=== PATIENT | female | born 1965 | race Caucasian/White ===

== ENCOUNTER 2017-05-19 18:54 | Emergency (ER) | payer SELFPAY ==
[~2017-05-19] VITALS: Ht 175.3 cm; Wt 63.5 kg
[2017-05-19 19:01] VITALS: BP 134/83
--- NOTE | 2017-05-19 19:06 | NUR ---
PT TAKEN TO BED 12
--- NOTE | 2017-05-19 19:15 | NUR ---
CAME IN WITH C/O LOWER BACK PAIN , WITH PAINFUL URINATION -BURNING STARTED LAST NIGHT.
--- NOTE | 2017-05-19 19:35 | NUR ---
Patient being evaluated by physician at bedside.
[2017-05-19] MEDS ORDERED: PHENAZOPYRIDINE 100 MG TAB PO ONE (19:45)
[2017-05-19] MEDS ORDERED: SULFAMETH/TRIMETH DS 800/160MG 1 TAB PO ONE (19:45)
--- NOTE | 2017-05-19 19:55 | NUR ---
MEDICATED PER ERMDS ORDER, TOLERATED WELL.
[2017-05-19 20:10] VITALS: BP 134/83
--- NOTE | 2017-05-19 20:10 | NUR ---
Patient discharged with v/s stable. Written and verbal after care instructions given and explained. Patient alert, oriented and verbalized understanding of instructions. Ambulatory with steady gait. All questions addressed prior to discharge. ID band removed. Patient advised to follow up with PMD. Rx of PYRIDIUM 200MG, MACROBID 100MG given. Patient educated on indication of medication including possible reaction and side effects. Opportunity to ask questions provided and answered.
== END 2017-05-19 20:10 | disposition home or self-care (01) ==
LOC: MED 18:54
DX: N39.0 Urinary tract infection, site not specified (principal); M54.40 Lumbago with sciatica, unspecified side
CPT/HCPCS: 81002; 81025; 99283

== ENCOUNTER 2017-10-03 18:29 | Inpatient (IN) | payer OTHER ==
[~2017-10-03] VITALS: Ht 172.7 cm; Wt 61.2 kg
--- NOTE | 2017-10-03 18:32 | NUR ---
PT BIBA TO BED 1
[2017-10-03 18:37] VITALS: BP 110/62
--- NOTE | 2017-10-03 18:55 | NUR ---
PT LYING ON BED. MONITOR ON. CO SYNCOPE EPISODE TODAY WITH LIGHTHEADEDNESS. NO INJURY. PT WAS A/OX3. WALKED INTO BATH FOR URINE SAMPLE IN STEADY GAIT. SPEAKS FULL SENTENCES, FOLLOWS COMMAND, DENIES SOB. LOUNG SOUND CLEAR. BREATHING EVEN. ABDOMEN ROUND AND SOFT. NO N/V/D. SKIN INTACT, WARM AND DRY.
[2017-10-03 19:23] LABS: APPEARANCE,URINE SL CLOUDY (CLEAR); BILIRUBIN,URINE NEGATIVE (NEGATIVE); BLOOD, URINE 3+ (NEGATIVE); COLOR,URINE YELLOW (YELLOW); LEUKOCYTE ESTERASE ,URINE 2+ (NEGATIVE); NITRITE, URINE NEGATIVE (NEGATIVE); UGLUCOSE NEGATIVE (NEGATIVE)
[2017-10-03 19:26] LABS: RBC,URINE 50-80 /HPF (0-5); WBC,URINE 20-60 /HPF (0-5)
[2017-10-03 19:28] LABS: PROTHROMBIN TIME 11.3 secs (10.8-13.4)
[2017-10-03 19:30] LABS: ALBUMIN 2.4 g/dL (3.4-5.0); ANION GAP 13.9 (8-16); BILIRUBIN,DIRECT 0.1 mg/dL (0.0-0.3); CARBON DIOXIDE 25.8 mmol/L (21-32); CREATININE 1.1 mg/dL (0.6-1.3); POTASSIUM 3.7 mmol/L (3.5-5.1); TOTAL BILIRUBIN 0.2 mg/dL (0.0-1.0)
[2017-10-03 19:34] LABS: BASOPHILS # (AUTO) 0.1 K/uL (0.00-0.22); BASOPHILS % (AUTO) 0.4 % (0.0-2.0); EOSINOPHILS # (AUTO) 0.1 K/uL (0-0.4); EOSINOPHILS % (AUTO) 0.8 % (0.0-4.0); LYMPHOCYTES # (AUTO) 0.9 K/uL (2.5-16.5); LYMPHOCYTES % (AUTO) 5.4 % (20.5-51.1); MEAN CORPUSCULAR HEMOGLOBIN 18 pg (27-31); MEAN CORPUSCULAR HGB CONC 31 g/dL (33-37); MEAN CORPUSCULAR VOLUME 58 fL (80-94); MONOCYTES # (AUTO) 0.4 K/uL (0.8-1.0); MONOCYTES % (AUTO) 2.8 % (1.7-9.3); NEUTROPHILS # (AUTO) 14.3 K/uL (1.8-7.7); NEUTROPHILS % (AUTO) 90.6 % (42.2-75.2); PLATELET COUNT (AUTO) 736 K/uL (140-450); RED BLOOD CELL COUNT(AUTO) 2.31 MIL/uL (4.20-5.40); RED CELL DISTRIBUTION WIDTH 16.7 % (11.6-13.7); WHITE BLOOD COUNT (AUTO) 15.8 K/uL (4.8-10.8)
[2017-10-03 19:35] LABS: HEMOGLOBIN 4.1 g/dL (12.0-16.0)
[2017-10-03 19:36] LABS: HEMATOCRIT 13.3 % (36-48)
--- NOTE | 2017-10-03 19:55 | NUR ---
Patient being evaluated by physician at bedside.
[2017-10-03] MEDS ORDERED: NACL 0.9% 1,000 ML IV ONE (20:10)
[2017-10-03] MEDS ORDERED: KETOROLAC 30 MG/ML VIAL IVP ONE (20:10)
[2017-10-03] MEDS ORDERED: LEVOFLOXACIN 500 MG/D5W PREMIX 100 ML IV ONE (20:10)
[2017-10-03] MEDS: NACL 0.9% 1,000 ML IV SCH ×2 (20:38→22:29)
[2017-10-03] MEDS ORDERED: ONDANSETRON 4 MG/2 ML VIAL IVP PRN (20:40)
[2017-10-03] MEDS ORDERED: DOCUSATE SODIUM 100 MG GELCAP PO PRN (20:40)
[2017-10-03] MEDS ORDERED: ACETAMINOPHEN EXTRA STRENGTH 500 MG TAB PO SCH (21:00)
[2017-10-03] MEDS ORDERED: FUROSEMIDE 20 MG TAB PO SCH (21:00)
--- NOTE | 2017-10-03 21:14 | NUR ---
Patient will be admitted to care of DR GARCIA. Admited to TELE FLOOR. Will go to room 108 b. Belongings list completed. Report to jennifer.
[2017-10-03 21:20] VITALS: BP 107/50
--- NOTE | 2017-10-03 21:20 | NUR ---
RECEIVED PT FROM ER VIA KEYSHA PT IS AAOX4 AMBULATORY ON [employer] ST IV ON LEFT AC INFUSING LEVAQUIN NOT REACTION NOTED, PT IS ORIENTED TO THE FLOOR, MRSA NARES PROTOCOL TAKEN AND SENT TO LAB, PENDING FOR LAB TO BE CALL FOR BLOOD TO BE READY.TO TRANSFUSED, PT STARTED TO HAVE HER PERIOD TODAY FEMININE PAD ARE PROVIDED
[2017-10-03 21:44] LABS: FREE T4 (FREE THYROXINE) 1.18 ng/dL (0.76-1.46); MAGNESIUM 1.8 mg/dL (1.8-2.4); PHOSPHORUS 4.4 mg/dL (2.5-4.9); THYROID STIMULATING HORMONE 1.79 uIU/mL (0.34-3.74)
[2017-10-03] MEDS ORDERED: ACETAMINOPHEN 325 MG TAB PO PRN (22:00)
[2017-10-03 22:08] LABS: BARBITURATE, URINE NEG. ng/ml (NEG <=200); BENZODIAZEPINE, URINE NEG. ng/mL (NEG <=200); CANNABINOID, URINE NEG. ng/mL (NEG <=50); COCAINE, URINE NEG. ng/mL (NEG <=300); OPIATE, URINE POS. ng/mL (NEG <=2000); PHENCYCLIDINE SCREEN,URINE NEG. ng/mL (NEG <=25)
--- NOTE | 2017-10-03 23:05 | NUR ---
FIRST UNIT OF BLOOD STARTED TO TRANSFUSED
[2017-10-04] VITALS (7 sets, daily range): BP systolic 105–134; BP diastolic 52–79
--- NOTE | 2017-10-04 | NUR ---
PT ON BLOOD TRANSFUSION NOT REACTION NOTED VOIDING WELL , AMBULATES TO THE RESTROOM VOIDING WELL, ON TELEMETRY SR
[2017-10-04] MEDS ORDERED: FUROSEMIDE 20 MG TAB PO ONE ×2 (02:00→04:25)
--- NOTE | 2017-10-04 02:32 | NUR ---
FIRST UNITS PRBC END AT 0230 AM WITH NOT REACTION AND LASIX PO GIVEN ORDER AND LAB WILL BE HERE IN 15 MINUTES DOCTOR ORDER TO DRAW BLOOD TO MONITOR HEMOGLOBIN
[2017-10-04 03:04] LABS: RED BLOOD CELL COUNT(AUTO) 2.26 MIL/uL (4.20-5.40)
[2017-10-04 03:06] LABS: MEAN CORPUSCULAR HEMOGLOBIN 19 pg (27-31); MEAN CORPUSCULAR HGB CONC 31 g/dL (33-37); MEAN CORPUSCULAR VOLUME 62 fL (80-94); PLATELET COUNT (AUTO) 619 K/uL (140-450); RED CELL DISTRIBUTION WIDTH 24.2 % (11.6-13.7); WHITE BLOOD COUNT (AUTO) 11.7 K/uL (4.8-10.8)
[2017-10-04 03:07] LABS: ANION GAP 9.2 (8-16); CARBON DIOXIDE 28.5 mmol/L (21-32); POTASSIUM 3.7 mmol/L (3.5-5.1)
[2017-10-04 03:11] LABS: CHOL/HDL RATIO 4.3 (1-4.5); HEMATOCRIT 14.1 % (36-48); HEMOGLOBIN 4.3 g/dL (12.0-16.0); MAGNESIUM 1.9 mg/dL (1.8-2.4); PHOSPHORUS 4.5 mg/dL (2.5-4.9)
--- NOTE | 2017-10-04 03:15 | NUR ---
LAB REPORTED HEMOGLOBIN 4.[address] GUNN NOTIFY AND ORDERS ;TO FOLLOW
--- NOTE | 2017-10-04 04:00 | NUR ---
PT VOIDING WELL AMBULATES TO THE RESTROOM , DENIES ANY PAIN IV ONLEFT AC INFUSING WELL ON TELEMETRY SR
[2017-10-04] MEDS ORDERED: ACETAMINOPHEN 325 MG TAB PO ONE (04:25)
[2017-10-04] MEDS: NACL 0.9% 1,000 ML IV SCH (04:30)
[2017-10-04 04:46] LABS: BASOPHILS # (AUTO) 0.1 K/uL (0.00-0.22); EOSINOPHILS # (AUTO) 0.5 K/uL (0-0.4); LYMPHOCYTES # (AUTO) 1.6 K/uL (2.5-16.5); LYMPHOCYTES % (AUTO) 14.7 % (20.5-51.1); MEAN CORPUSCULAR VOLUME 62 fL (80-94)
[2017-10-04 04:47] LABS: BASOPHILS % (AUTO) 1.3 % (0.0-2.0); EOSINOPHILS % (AUTO) 4.8 % (0.0-4.0); MEAN CORPUSCULAR HEMOGLOBIN 19 pg (27-31); MEAN CORPUSCULAR HGB CONC 31 g/dL (33-37); MONOCYTES # (AUTO) 0.7 K/uL (0.8-1.0); MONOCYTES % (AUTO) 6.7 % (1.7-9.3); NEUTROPHILS # (AUTO) 7.8 K/uL (1.8-7.7); NEUTROPHILS % (AUTO) 72.5 % (42.2-75.2); PLATELET COUNT (AUTO) 689 K/uL (140-450); RED BLOOD CELL COUNT(AUTO) 2.36 MIL/uL (4.20-5.40); RED CELL DISTRIBUTION WIDTH 23.2 % (11.6-13.7); WHITE BLOOD COUNT (AUTO) 10.7 K/uL (4.8-10.8)
--- NOTE | 2017-10-04 05:00 | NUR ---
SECOND UNIT PRBC STARTED PT DENIES ANY DISCOMFORT AT THIS TIME
[2017-10-04 05:04] LABS: HEMATOCRIT 14.8 % (36-48); HEMOGLOBIN 4.6 g/dL (12.0-16.0)
[2017-10-04] MEDS ORDERED: FUROSEMIDE 20 MG TAB PO SCH (07:00)
--- NOTE | 2017-10-04 07:15 | NUR ---
BEDSIDE REPORT RECEIVED FROM ASSOCIATE PASTOR NURSE. PATIENT IS ALERT, AWAKE AND ORIENTED. NO S/S OF RESPIRATORY DISTRESS ON ROOM AIR. IV ON L AC 20 GAUGE, CLEAN, DRY AND INTACT. CURRENTLY TRANSFUSING BLOOD, WILL CONTINUE TO ASSESS FOR BLOOD TRANSFUSION REACTIONS.BED IN LOW POSITION AND CALL LIGHT WITHIN. WILL CONTINUE TO MONITOR.
[2017-10-04] MEDS ORDERED: FERRIC GLUCONATE 125 MG in NACL 0.9% 100 ML IV SCH (08:00)
[2017-10-04] MEDS: HYDROcodone/APAP 5/325 MG 1 TAB TAB PO PRN ×2 (08:22→20:36)
[2017-10-04] MEDS: LACTOBACILLUS RHAMNOSUS GG 1 EACH CAP PO SCH (08:22)
[2017-10-04] MEDS: FERROUS SULFATE 325 MG TABEC PO SCH ×2 (08:23→16:12)
[2017-10-04] MEDS: ASCORBIC ACID 500 MG TAB PO SCH (08:26)
--- NOTE | 2017-10-04 08:27 | NUR ---
ADMINISTERED MORNING MEDS, INCLUDING PAIN MED. PATIENT TOLERATED WELL. EXPLAINED SIDE EFFECTS AND ANSWERED ALL QUESTIONS. WILL CONTINUE TO MONITOR.
[2017-10-04 09:00] LABS: EOSINOPHILS % (MANUAL) 4 % (0-4); LYMPHOCYTES % (MANUAL) 12 % (20-46); MONOCYTES % (MANUAL) 4 % (5-12)
--- NOTE | 2017-10-04 09:50 | NUR ---
FINISHED BLOOD TRANSFUSION. VITAL SIGNS WITHIN NORMAL LIMITS. REMOVED ALL BLOOD PRODUCTS AND TUBING IN BIOHAZARD BAG. NO S/S OF ANY SIDE EFFECT, NO PAIN, NO BLEEDING NOTED. WILL NOTIFY MD TO REDRAW CBC. WILL ADMINISTER FERRIC GLUCONATE. WILL CONTINUE TO MONITOR PATIENT.
--- NOTE | 2017-10-04 10:32 | NUR ---
PATIENT HAS BEEN SCREENED AND CATEGORIZED HIGH NUTRITION RISK. PATIENT WILL BE SEEN WITHIN 1-2 DAYS OF ADMISSION. 10/04/17 - 10/05/[address]
--- NOTE | 2017-10-04 10:34 | NUR ---
FRIEND VISITING AND IS AT BEDSIDE. PATIENT IN GOOD SPIRITS, NO SIGNS OF DISTRESS. WILL CONTINUE TO MONITOR PATIENT.
[2017-10-04] MEDS ORDERED: DOCUSATE SODIUM 100 MG GELCAP PO SCH (10:46)
--- NOTE | 2017-10-04 11:35 | NUR ---
PATIENT CURRENTLY RECEIVING TRANSVAGINAL ULTRASOUND PROCEDURE AT BEDSIDE.
--- NOTE | 2017-10-04 13:30 | NUR ---
STILL NO CBC. CALLED LAB. PER SAFEKEEPING CLERK, WHEN THEY CAME BY, PT WAS HAVING PROCEDURE DONE. REQUESTED A CALL BACK WHEN PT IS DONE. THEY WILL COME NOW TO DO THE BLOOD DRAW.
[2017-10-04 13:41] LABS: BASOPHILS # (AUTO) 0.1 K/uL (0.00-0.22); BASOPHILS % (AUTO) 0.6 % (0.0-2.0); EOSINOPHILS # (AUTO) 0.2 K/uL (0-0.4); EOSINOPHILS % (AUTO) 1.1 % (0.0-4.0); HEMATOCRIT 23.2 % (36-48); HEMOGLOBIN 7.1 g/dL (12.0-16.0); LYMPHOCYTES # (AUTO) 1.4 K/uL (2.5-16.5); MEAN CORPUSCULAR HEMOGLOBIN 20 pg (27-31); MEAN CORPUSCULAR HGB CONC 31 g/dL (33-37); MEAN CORPUSCULAR VOLUME 66 fL (80-94); MONOCYTES # (AUTO) 0.6 K/uL (0.8-1.0); MONOCYTES % (AUTO) 3.7 % (1.7-9.3); NEUTROPHILS # (AUTO) 14.8 K/uL (1.8-7.7); NEUTROPHILS % (AUTO) 86.6 % (42.2-75.2); RED BLOOD CELL COUNT(AUTO) 3.52 MIL/uL (4.20-5.40); RED CELL DISTRIBUTION WIDTH 26.4 % (11.6-13.7); WHITE BLOOD COUNT (AUTO) 17.1 K/uL (4.8-10.8)
--- NOTE | 2017-10-04 13:45 | NUR ---
10/04/2017 RD INITIAL ASSESSMENT COMPLETED PLEASE REFER TO NUTRITION ASSESSMENT UNDER CARE ACTIVITY FOR ESTIMATED NUTRITIONAL NEEDS. CONTINUE REGULAR DIET TOLERATED. RD TO FOLLOW-UP IN 3-5 DAYS PATIENT IS MODERATE RISK. ISAIAS DIAZ RD
--- NOTE | 2017-10-04 13:57 | NUR ---
CM NOTE PER COTTON BAG CLIPPER DAVID, THE [employer] THAT IS WRITTEN ON PATIENT'S FACESHEET INSURANCE #1 IS FOR AN AUTO INSURANCE. PER DAVID, SHE IS STILL VERIFYING PATIENT'S HEALTH INSURANCE. INITIAL REVIEW NOT SENT AT THIS TIME BECAUSE COTTON BAG CLIPPER IS STILL VERIFYING PATIENT'S HEALTH INSURANCE AND WHERE TO SEND REVIEWS TO.
[2017-10-04 13:58] LABS: PLATELET COUNT (AUTO) 826 K/uL (140-450)
--- NOTE | 2017-10-04 14:00 | NUR ---
NOTIFIED MD OF CRITICAL LAB, PLATELETS 826. MD AWARE. PER MD RECHECK CBC, LAB NOTIFIED.
--- NOTE | 2017-10-04 14:49 | NUR ---
CM NOTE PER SUPPLY COORDINATOR DAVID, PATIENT'S INSURANCE IS [employer] # [phone] OPT , AND TO SEND REVIEWS TO [phone], CLAIM# [id number], NO ASSIGNED CM AT THIS TIME. SPOKE WITH ARMANDO OF [employer] [place] PH# [phone] OPT AND SHE SAID THERE IS NO ASSIGNED CM AT THIS TIME AND TO SEND CLINICAL REVIEWS TO [phone]. INITIAL REVIEW FAXED TO [employer] [phone], CLAIM# [id number], PH# [phone] OPT .
[2017-10-04 15:18] LABS: BASOPHILS # (AUTO) 0.1 K/uL (0.00-0.22); BASOPHILS % (AUTO) 0.5 % (0.0-2.0); EOSINOPHILS # (AUTO) 0.2 K/uL (0-0.4); EOSINOPHILS % (AUTO) 1.2 % (0.0-4.0); LYMPHOCYTES # (AUTO) 1.1 K/uL (2.5-16.5); LYMPHOCYTES % (AUTO) 7.1 % (20.5-51.1); MEAN CORPUSCULAR HEMOGLOBIN 21 pg (27-31); MEAN CORPUSCULAR HGB CONC 31 g/dL (33-37); MEAN CORPUSCULAR VOLUME 66 fL (80-94); MONOCYTES # (AUTO) 0.7 K/uL (0.8-1.0); MONOCYTES % (AUTO) 4.6 % (1.7-9.3); NEUTROPHILS # (AUTO) 12.7 K/uL (1.8-7.7); NEUTROPHILS % (AUTO) 86.6 % (42.2-75.2); PLATELET COUNT (AUTO) 743 K/uL (140-450); RED BLOOD CELL COUNT(AUTO) 3.35 MIL/uL (4.20-5.40); RED CELL DISTRIBUTION WIDTH 26.1 % (11.6-13.7); WHITE BLOOD COUNT (AUTO) 14.8 K/uL (4.8-10.8)
[2017-10-04 15:21] LABS: HEMOGLOBIN 6.9 g/dL (12.0-16.0)
--- NOTE | 2017-10-04 16:13 | NUR ---
V/S DONE. WITHIN NORMAL RANGE. ADMINISTERED SCHEDULED MED AND TYLENOL FOR MILD UTI PAIN. 09/25. PT TOLERATED WELL.
[2017-10-04] MEDS ORDERED: LORATADINE 10 MG TAB PO SCH (17:29)
--- NOTE | 2017-10-04 18:30 | NUR ---
PICKED UP BLOOD FROM LAB. BASELINE VITALS ARE DONE. WILL GIVE BENADRYL AND CLARATIN PRIOR TO TRANSFUSION ORDERED. WILL START TRANSFUSION. PATIENT IN STABLE CONDITION.
--- NOTE | 2017-10-04 19:20 | NUR ---
ENDORSED PT TO THE NIGHTSHIFT NURSE AT BEDSIDE FOR CONTINUITY OF CARE. PT IS IN STABLE CONDITION. BLOOD INFUSING.
--- NOTE | 2017-10-04 19:25 | NUR ---
RECEIVED REPORT FROM DAY SHIFT NURSE. AAOX4. IV TO LEFT AC #20G, BLOOD TRANSFUSION ONGOING. PT ON ROOM AIR. NO ACUTE RESP DISTRESS NOTED. NO C/O PAIN. DISCUSSED PLAN OF CARE, PT VERBALIZED UNDERSTANDING. CALL LIGHT WITHIN REACH. WILL CONTINUE TO MONITOR.
[2017-10-04] MEDS: DOCUSATE SODIUM 100 MG GELCAP PO SCH (20:36)
[2017-10-04] MEDS ORDERED: LEVOFLOXACIN 500 MG/D5W PREMIX 100 ML IV SCH (21:00)
--- NOTE | 2017-10-04 21:30 | NUR ---
BLOOD TRANSFUSION INFUSING. PT REFUSED ANOTHER IV LINE FOR LEVAQUIN. DR. CHAVEZ MADE AWARE. MD WILL ORDER PO ANTIBIOTIC.
--- NOTE | 2017-10-04 23:25 | NUR ---
BLOOD TRANSFUSION DONE. V/S TAKEN, WNL. NO DISTRESS NOTED. DR. CHAVEZ MADE AWARE.
[2017-10-04] MEDS ORDERED: LEVOFLOXACIN 750 MG TAB PO SCH (23:30)
[2017-10-05] VITALS: BP 131/86
[2017-10-05] MEDS ORDERED: FUROSEMIDE 40 MG TAB PO SCH (01:30)
--- NOTE | 2017-10-05 01:45 | NUR ---
PT IN BED WATCHING ON HER CELLPHONE. NO C/O PAIN. NO RESP DISTRESS NOTED. CALL LIGHT WITHIN REACH.
[2017-10-05] MEDS: NACL 0.9% 1,000 ML IV SCH (02:38)
[2017-10-05 04:00] VITALS: BP 126/78
--- NOTE | 2017-10-05 04:05 | NUR ---
BUT SLEEPING BUT EASILY AROUSABLE. NO S/S OF PAIN. CALL LIGHT WITHIN REACH.
[2017-10-05] MEDS ORDERED: KCL 20 MEQ/WATER INJ PREMIX 200 ML IV SCH (06:00)
[2017-10-05 06:34] LABS: HEMATOCRIT 25.9 % (36-48); MEAN CORPUSCULAR HEMOGLOBIN 21 pg (27-31); MEAN CORPUSCULAR HGB CONC 31 g/dL (33-37); MEAN CORPUSCULAR VOLUME 69 fL (80-94); PLATELET COUNT (AUTO) 694 K/uL (140-450); RED BLOOD CELL COUNT(AUTO) 3.73 MIL/uL (4.20-5.40); RED CELL DISTRIBUTION WIDTH 26.7 % (11.6-13.7); WHITE BLOOD COUNT (AUTO) 16.3 K/uL (4.8-10.8)
[2017-10-05 06:48] LABS: ANION GAP 11.2 (8-16); CARBON DIOXIDE 31.2 mmol/L (21-32); CREATININE 0.9 mg/dL (0.6-1.3); POTASSIUM 3.4 mmol/L (3.5-5.1)
--- NOTE | 2017-10-05 07:10 | NUR ---
ENDORSED PT TO DAY SHIFT NURSE. PT IN STABLE CONDITION.
--- NOTE | 2017-10-05 07:12 | NUR ---
RECEIVED BEDSIDE REPORT FROM BICYCLE FITTER NURSE. PATIENT IS ALERT AND ORIENTEDX4. CURRENTLY STRETCHING AT BEDSIDE. NO S/S OF RESPIRATORY DISTRESS ON ROOM AIR. IV ON L AC 20 GAUGE INFUSING NS AT 100MLS/HR. IV SITE IS CLEAN, DRY, AND INTACT. SKIN IS WARM, DRY, AND INTACT. ANSWERED ALL QUESTIONS AT THIS TIME. CALL LIGHT WITHIN REACH. BED IN LOW POSITION. WILL CONTINUE TO MONITOR.
[2017-10-05 07:44] LABS: MAGNESIUM 1.7 mg/dL (1.8-2.4); PHOSPHORUS 4.1 mg/dL (2.5-4.9)
[2017-10-05 08:00] VITALS: BP 132/79
[2017-10-05] MEDS: HYDROcodone/APAP 5/325 MG 1 TAB TAB PO PRN (08:44)
[2017-10-05] MEDS: ASCORBIC ACID 500 MG TAB PO SCH (08:44)
[2017-10-05] MEDS: FERROUS SULFATE 325 MG TABEC PO SCH (08:44)
[2017-10-05] MEDS: LACTOBACILLUS RHAMNOSUS GG 1 EACH CAP PO SCH (08:45)
[2017-10-05] MEDS: DOCUSATE SODIUM 100 MG GELCAP PO SCH (08:45)
[2017-10-05] MEDS ORDERED: MAGNESIUM OXIDE 400 MG TAB PO SCH (08:45)
[2017-10-05] MEDS ORDERED: POTASSIUM CHLORIDE 10 MEQ TABER PO SCH (08:45)
--- NOTE | 2017-10-05 08:50 | NUR ---
ADMINISTERED MORNING MEDS. PT TOLERATED WELL. WILL CONTINUE TO MONITOR PT.
[2017-10-05 09:15] LABS: LYMPHOCYTES % (MANUAL) 6 % (20-46); MONOCYTES % (MANUAL) 3 % (5-12)
--- NOTE | 2017-10-05 09:17 | NUR ---
CM NOTE CONCURRENT REVIEW FAXED TO [facility] [phone], CLAIM# [id number], PH# [phone] OPT 1,1.
[2017-10-05] MEDS ORDERED: LACT1.4C PO (10:21)
[2017-10-05] MEDS ORDERED: LEVO750T2 PO (10:21)
[2017-10-05] MEDS ORDERED: FERR325E14 PO (10:21)
--- NOTE | 2017-10-05 10:45 | NUR ---
PT IS RESTING, WATCHING TV. NO SIGNS OF DISTRESS. NO COMPLAINTS. WILL CONTINUE TO MONITOR PT.
--- NOTE | 2017-10-05 12:19 | NUR ---
DISCHARGE INSTRUCTIONS GIVEN. ANSWERED ALL QUESTIONS. IV REMOVED, CANNULA INTACT. NO BLEEDING NOTED. REMOVED TELE MONITOR AND ID BANDS. PT IS GETTING DRESSED AND WILL GATHER HER THINGS. SHE WILL HAVE LUNCH WHILE SHE WAITS FOR HER RIDE. WILL LET US KNOW WHEN RIDE IS HERE.
[2017-10-05 15:27] LABS: FOLIC ACID 7.3 ng/mL (>3.0)
== END 2017-10-05 12:30 | disposition home or self-care (01) | DRG 871 ==
LOC: MED 18:29 → MTU 20:48
PROVIDERS: ADMIT Student in an Organized Health Care Education/Training Program; ATTEND Student in an Organized Health Care Education/Training Program
PROC: 30233N1 Transfusion of Nonautologous Red Blood Cells into Peripheral Vein, Percutaneous Approach (ICD-10-PCS; principal; 2017-10-03)
DX: A41.9 Sepsis, unspecified organism (principal); E43 Unspecified severe protein-calorie malnutrition; N39.0 Urinary tract infection, site not specified; E87.1 Hypo-osmolality and hyponatremia; G89.29 Other chronic pain; D64.9 Anemia, unspecified; D47.3 Essential (hemorrhagic) thrombocythemia; E83.51 Hypocalcemia; Z68.20 Body mass index [BMI] 20.0-20.9, adult; M54.32 Sciatica, left side; E11.65 Type 2 diabetes mellitus with hyperglycemia; Z83.3 Family history of diabetes mellitus; Z82.49 Family history of ischemic heart disease and other diseases of the circulatory system
CPT/HCPCS: 36415; 71045; 76830; 80048; 80053; 80076; 80305; 81001; 81025; 82150; 82607; 82728; 82746; 82948; 83036; 83540; 83605; 83690; 83735; 83880; 84100; 84439; 84443; 84484; 85025; 85045; 85610; 85730; 86886; 86900; 86901; 86920; 87040; 87081; 87086; 93005; 96361; 96374; 99285; J1885; J1956; J2916; J3480; J7030; P9016; Q0092; Q0163

== ENCOUNTER 2017-12-16 16:01 | Inpatient (IN) | payer MEDICAID, OTHER ==
[~2017-12-16] VITALS: Ht 172.7 cm; Wt 65.8 kg
[~2017-12-16 16:01] MED LIST: FERR325E14 PO; LACT1.4C PO; LEVO750T2 PO
[2017-12-16 16:07] VITALS: BP 134/81
--- NOTE | 2017-12-16 16:16 | NUR ---
PT AMBULATED TO BED 3. Addendum: 12/16/17 at 1622 by [facility] PT WENT TO BED 2.
[2017-12-16] MEDS ORDERED: NACL 0.9% 1,000 ML IV ONE (16:40)
--- NOTE | 2017-12-16 16:45 | NUR ---
52/F c/o lightheadedness x5 days and noted bilateral lower leg swelling and swelling to bilateral hands; sudden onset. Pt denies any cardiac history. Pt states she has a hx of anemia and blood transfusions a few months ago. Pt skin appears pale, cool to touch, edematous. +3 pitting edema to bilateral lower extremities. Edema to bilateral hands. AOX4, clear speech. VSS. Pt placed in a gown, placed on evaporator operator molasses, pulse oximetry and blood pressure monitoring.
[2017-12-16 17:01] LABS: MEAN CORPUSCULAR HEMOGLOBIN 17 pg (27-31); MEAN CORPUSCULAR HGB CONC 29 g/dL (33-37); MEAN CORPUSCULAR VOLUME 56.1 fL (80-94); RED CELL DISTRIBUTION WIDTH 18.5 % (11.6-13.7); WHITE BLOOD COUNT (AUTO) 28.1 K/uL (4.8-10.8)
[2017-12-16] MEDS ORDERED: DOCU-299 PO (17:09)
[2017-12-16] MEDS ORDERED: ACET-2858 PO (17:09)
[2017-12-16 17:10] LABS: HEMATOCRIT 12.9 % (36-48); HEMOGLOBIN 3.8 g/dL (12.0-16.0); PLATELET COUNT (AUTO) 987 K/uL (140-450)
[2017-12-16 17:15] LABS: BILIRUBIN,URINE NEGATIVE (NEGATIVE); BLOOD, URINE 1+ (NEGATIVE); COLOR,URINE YELLOW (YELLOW); LEUKOCYTE ESTERASE ,URINE 3+ (NEGATIVE); NITRITE, URINE NEGATIVE (NEGATIVE); PH,URINE 6.5 (5.0-9.0); UGLUCOSE NEGATIVE (NEGATIVE)
[2017-12-16 17:18] LABS: APPEARANCE,URINE CLOUDY (CLEAR)
[2017-12-16 17:19] LABS: PROTHROMBIN TIME 10.6 secs (10.8-13.4)
--- NOTE | 2017-12-16 17:20 | NUR ---
Bed in lowest position. One side rail up. Comfort measures addressed. Lights dimmed in room. Call ligh left within reach.
[2017-12-16 17:21] LABS: ALBUMIN 2.3 g/dL (3.4-5.0); ANION GAP 9.3 (8-16); CARBON DIOXIDE 30.4 mmol/L (21-32); CREATININE 1.7 mg/dL (0.6-1.3); POTASSIUM 3.7 mmol/L (3.5-5.1); TOTAL BILIRUBIN 0.2 mg/dL (0.0-1.0)
[2017-12-16 17:27] LABS: RBC,URINE NONE SEEN /HPF (0-5); WBC,URINE TOO MANY TO COUNT /HPF (0-5)
[2017-12-16] MEDS ORDERED: LEVOFLOXACIN 750 MG/D5W PREMIX 150 ML IV ONE (17:35)
[2017-12-16] MEDS ORDERED: NACL 3% 500 ML IV ONE (17:35)
[2017-12-16] MEDS ORDERED: NACL 0.9% 1,000 ML IV SCH (17:49)
[2017-12-16] MEDS ORDERED: ZOLPIDEM 5 MG TAB PO PRN (17:50)
[2017-12-16] MEDS ORDERED: ACETAMINOPHEN 325 MG TAB PO PRN (17:50)
[2017-12-16 17:58] LABS: LYMPHOCYTES % (MANUAL) 2 % (20-46); MONOCYTES % (MANUAL) 3 % (5-12)
--- NOTE | 2017-12-16 18:08 | NUR ---
Pt appears to be resting comfortably; VSS. Warm blanket provided. Comfort needs met. Call light left within reach.
--- NOTE | 2017-12-16 18:22 | NUR ---
Consent for blood transfusion signed by patient and Dr. Ramirez and placed in chart.
--- NOTE | 2017-12-16 18:30 | NUR ---
Pt transferred to Tele 104-A via gurney. All belongings sent with patient to Tele unit. IV fluids sent infusing with patient.
[2017-12-16 18:35] VITALS: BP 133/80
--- NOTE | 2017-12-16 18:35 | NUR ---
RECEIVED REPORT FROM ER NURSE AT BEDSIDE FOR CONTINUITY OF CARE. PT CAME BY KEYSHA. PT IS AAOX4. PT DX: SEVERE CHRONIC ANEMIA, HYPONATREMIA, SEPSIS W/ UTI. PT HAS LAC AND RAC 18G. LAC RUNNING 3% SALINE 100ML/HR. PT ORIENTED TO ROOM ON ROOM AIR NO S/S OF DISTRESS NO SOB. WILL CONTINUE TO MONITOR.
[2017-12-16] MEDS ORDERED: FUROSEMIDE 40 MG/4 ML VIAL IVP SCH (18:51)
[2017-12-16 19:09] LABS: FREE T4 (FREE THYROXINE) 1.06 ng/dL (0.76-1.46); MAGNESIUM 1.9 mg/dL (1.8-2.4); PHOSPHORUS 3.6 mg/dL (2.5-4.9); THYROID STIMULATING HORMONE 2.61 uIU/mL (0.34-3.74)
[2017-12-16 19:22] LABS: BARBITURATE, URINE NEG. ng/ml (NEG <=200); BENZODIAZEPINE, URINE NEG. ng/mL (NEG <=200); CANNABINOID, URINE POS. ng/mL (NEG <=50); COCAINE, URINE NEG. ng/mL (NEG <=300); OPIATE, URINE NEG. ng/mL (NEG <=2000); PHENCYCLIDINE SCREEN,URINE NEG. ng/mL (NEG <=25)
[2017-12-16 21:12] LABS: ANION GAP 10.3 (8-16); CARBON DIOXIDE 28.4 mmol/L (21-32); CREATININE 1.5 mg/dL (0.6-1.3); POTASSIUM 3.7 mmol/L (3.5-5.1)
[2017-12-16] MEDS: DOCUSATE SODIUM 100 MG GELCAP PO SCH (21:37)
[2017-12-16 23:38] LABS: ANION GAP 11.4 (8-16); CARBON DIOXIDE 28.2 mmol/L (21-32); CREATININE 1.6 mg/dL (0.6-1.3); POTASSIUM 3.6 mmol/L (3.5-5.1)
[2017-12-16] MEDS: HYDROcodone/APAP 5/325 MG 1 TAB TAB PO PRN (23:50)
--- NOTE | 2017-12-17 00:52 | NUR ---
PT STARTED ON 2 UNIT OF PRBC WILL CONTINUE TO MONITOR. PT ALSO STATES SHE HAS RESTLESS LEG SYNDROME AND TAKES VICODIN . WILL CONTINUE TO MONITOR.
[2017-12-17 04:00] VITALS: BP 135/72
[2017-12-17 06:31] LABS: BASOPHILS % (AUTO) 0.1 % (0.0-2.0); EOSINOPHILS # (AUTO) 0.3 K/uL (0-0.4); EOSINOPHILS % (AUTO) 1.3 % (0.0-4.0); LYMPHOCYTES # (AUTO) 0.7 K/uL (2.5-16.5); LYMPHOCYTES % (AUTO) 3.3 % (20.5-51.1); MEAN CORPUSCULAR HEMOGLOBIN 21 pg (27-31); MEAN CORPUSCULAR HGB CONC 32 g/dL (33-37); MONOCYTES # (AUTO) 1.2 K/uL (0.8-1.0); MONOCYTES % (AUTO) 5.6 % (1.7-9.3); NEUTROPHILS % (AUTO) 89.7 % (42.2-75.2); PLATELET COUNT (AUTO) 743 K/uL (140-450); RED BLOOD CELL COUNT(AUTO) 2.63 MIL/uL (4.20-5.40); WHITE BLOOD COUNT (AUTO) 21.1 K/uL (4.8-10.8)
--- NOTE | 2017-12-17 07:09 | NUR ---
GAVE REPORT TO DAYSHIFT NURSE AT BEDSIDE FOR CONTINUITY OF CARE.
--- NOTE | 2017-12-17 07:10 | NUR ---
RECEIVED PT FROM SUPERVISING FILM OR VIDEOTAPE EDITOR NURSE. INTRODUCED SELF, PT CURRENTLY RECEIVING BREATHING TREATMENT, NO S/S OF ACUTE DISTRESS. CALL LIGHT WITHIN REACH.
[2017-12-17 07:36] LABS: CHOL/HDL RATIO 5.8 (1-4.5); MAGNESIUM 1.8 mg/dL (1.8-2.4); PHOSPHORUS 3.5 mg/dL (2.5-4.9)
[2017-12-17 07:44] LABS: POTASSIUM 3.4 mmol/L (3.5-5.1)
[2017-12-17 07:45] LABS: ANION GAP 9.1 (8-16); CARBON DIOXIDE 29.3 mmol/L (21-32); CREATININE 1.5 mg/dL (0.6-1.3)
[2017-12-17 07:47] LABS: HEMATOCRIT 17.7 % (36-48); HEMOGLOBIN 5.6 g/dL (12.0-16.0)
[2017-12-17 08:00] VITALS: BP 124/73
[2017-12-17] MEDS: DOCUSATE SODIUM 100 MG GELCAP PO SCH ×2 (09:02→20:44)
[2017-12-17] MEDS: FUROSEMIDE 20 MG/2 ML VIAL IVP SCH (09:02)
--- NOTE | 2017-12-17 09:15 | NUR ---
PATIENT HAS BEEN SCREENED AND CATEGORIZED MODERATE NUTRITION RISK. PATIENT WILL BE SEEN WITHIN 3-5 DAYS OF ADMISSION. 12/19/17 12/21/[address]
[2017-12-17] MEDS ORDERED: POTASSIUM CHLORIDE 10 MEQ TABER PO SCH ×2 (09:32→15:40)
[2017-12-17] MEDS ORDERED: FERROUS SULFATE 325 MG TABEC PO SCH (10:00)
[2017-12-17] MEDS ORDERED: ASCORBIC ACID 500 MG TAB PO SCH (10:00)
[2017-12-17] MEDS: HYDROcodone/APAP 5/325 MG 1 TAB TAB PO PRN (11:22)
--- NOTE | 2017-12-17 11:30 | NUR ---
PT RESTING IN BED. WILL GIVE DUE MEDICATIONS. BOTH IVS FLUSHED AND PATENT. CALL LIGHT WITHIN REACH.
[2017-12-17 12:00] VITALS: BP 140/86
--- NOTE | 2017-12-17 13:25 | NUR ---
CRITICAL HGB/HCT AND PLT, SEE LABS IN CHART, DR NOTIFIED.
--- NOTE | 2017-12-17 13:30 | NUR ---
BUITRAGO INSERTED PER DRS ORDERS, 1000 ML OUTPUT, FOUL ODOR, YELLOW, CLEAR, TAPED TO RIGHT THIGH. DR CHAVEZ STATED HOLD NEPHROSTOMY PROCEDURE UNTIL TOMORROW. WILL ENDORSE ORDERS TO SUPERVISOR CONCRETE BLOCK PLANT NURSE.
[2017-12-17 13:35] LABS: EOSINOPHILS % (AUTO) 0.2 % (0.0-4.0); LYMPHOCYTES # (AUTO) 0.5 K/uL (2.5-16.5); LYMPHOCYTES % (AUTO) 1.9 % (20.5-51.1); MEAN CORPUSCULAR HEMOGLOBIN 21 pg (27-31); MEAN CORPUSCULAR HGB CONC 32 g/dL (33-37); MEAN CORPUSCULAR VOLUME 66.4 fL (80-94); MONOCYTES # (AUTO) 0.6 K/uL (0.8-1.0); MONOCYTES % (AUTO) 2.4 % (1.7-9.3); NEUTROPHILS # (AUTO) 23.2 K/uL (1.8-7.7); NEUTROPHILS % (AUTO) 95.5 % (42.2-75.2); RED BLOOD CELL COUNT(AUTO) 3.09 MIL/uL (4.20-5.40); RED CELL DISTRIBUTION WIDTH 31.3 % (11.6-13.7); WHITE BLOOD COUNT (AUTO) 24.3 K/uL (4.8-10.8)
[2017-12-17 13:40] LABS: HEMATOCRIT 20.5 % (36-48); HEMOGLOBIN 6.5 g/dL (12.0-16.0); PLATELET COUNT (AUTO) 785 K/uL (140-450)
[2017-12-17 13:50] LABS: ANION GAP 8.3 (8-16); CREATININE 1.6 mg/dL (0.6-1.3); POTASSIUM 3.3 mmol/L (3.5-5.1)
[2017-12-17] MEDS ORDERED: SODIUM FERRIC GLUCONATE 125 MG in NACL 0.9% 100 ML IV SCH (14:00)
--- NOTE | 2017-12-17 14:30 | NUR ---
WENT TO GET BLOOD. NO ONE AT LABORATORY WAS AVAILABLE TO GIVE BLOOD. SAID TO COME BACK AFTER 1500.
[2017-12-17] MEDS ORDERED: [UNRECOGNIZED DRUG - OTHER] IV SCH (15:10)
[2017-12-17 16:00] VITALS: BP 139/73
[2017-12-17 16:21] LABS: ANION GAP 11.4 (8-16); CARBON DIOXIDE 28.3 mmol/L (21-32); CREATININE 1.6 mg/dL (0.6-1.3); POTASSIUM 3.7 mmol/L (3.5-5.1)
--- NOTE | 2017-12-17 16:30 | NUR ---
PATIENT AMBULATED AROUND ROOM, NO SIGNS OF ACUTE DISTRESS. CALL LIGHT WITHIN REACH.
[2017-12-17] MEDS ORDERED: SAMSCA 15 MG PO SCH (17:00)
[2017-12-17] MEDS: FERROUS SULFATE 325 MG TABEC PO SCH (17:07)
--- NOTE | 2017-12-17 19:00 | NUR ---
PT ENDORSED TO ENAMEL DIPPER NURSE, PT STABLE.
--- NOTE | 2017-12-17 19:01 | NUR ---
RECEIVED PT REPORT FROM DAYSHIFT NURSE AT BEDSIDE FOR CONTINUITY OF CARE. PT AAOX4. PT RECEIVING 4TH UNIT OF PRBC. NO SOB NO S/S OF DISTRESS.IV NOTED LAC 20G AND RIGHT EXTERNAL JUGULAR NECK 18G. BED LOWERED CALL LIGHT WITHIN REACH. BUITRAGO IN PLACE. WILL CONTINUE TO MONITOR.
[2017-12-17 20:00] VITALS: BP 138/81
[2017-12-17 20:57] LABS: ANION GAP 12.1 (8-16); CARBON DIOXIDE 28.4 mmol/L (21-32); CREATININE 1.6 mg/dL (0.6-1.3); POTASSIUM 3.5 mmol/L (3.5-5.1)
[2017-12-18] VITALS: BP 134/79
--- NOTE | 2017-12-18 | NUR ---
CALLED LAB TO REQUEST CBC POST BLOOD TRANSFUSION.
[2017-12-18 00:24] LABS: HEMATOCRIT 24.5 % (36-48); MEAN CORPUSCULAR HEMOGLOBIN 23 pg (27-31); MEAN CORPUSCULAR HGB CONC 33 g/dL (33-37); MEAN CORPUSCULAR VOLUME 71.1 fL (80-94); PLATELET COUNT (AUTO) 618 K/uL (140-450); RED BLOOD CELL COUNT(AUTO) 3.44 MIL/uL (4.20-5.40); RED CELL DISTRIBUTION WIDTH 30.4 % (11.6-13.7); WHITE BLOOD COUNT (AUTO) 25.4 K/uL (4.8-10.8)
[2017-12-18 01:07] LABS: ANION GAP 10.9 (8-16); CARBON DIOXIDE 29.9 mmol/L (21-32); CREATININE 1.6 mg/dL (0.6-1.3); POTASSIUM 3.8 mmol/L (3.5-5.1)
[2017-12-18 01:09] LABS: LYMPHOCYTES % (MANUAL) 3 % (20-46); MONOCYTES % (MANUAL) 1 % (5-12)
[2017-12-18 04:00] VITALS: BP 133/80
[2017-12-18 06:15] LABS: HEMOGLOBIN 8.2 g/dL (12.0-16.0); MEAN CORPUSCULAR HEMOGLOBIN 23 pg (27-31); MEAN CORPUSCULAR HGB CONC 32 g/dL (33-37); MEAN CORPUSCULAR VOLUME 72.1 fL (80-94); PLATELET COUNT (AUTO) 615 K/uL (140-450); RED BLOOD CELL COUNT(AUTO) 3.61 MIL/uL (4.20-5.40); WHITE BLOOD COUNT (AUTO) 24.1 K/uL (4.8-10.8)
[2017-12-18 06:56] LABS: ANION GAP 11.4 (8-16); CARBON DIOXIDE 27.9 mmol/L (21-32); CREATININE 1.6 mg/dL (0.6-1.3); POTASSIUM 3.3 mmol/L (3.5-5.1)
[2017-12-18 07:02] LABS: LYMPHOCYTES % (MANUAL) 2 % (20-46); MAGNESIUM 1.9 mg/dL (1.8-2.4); MONOCYTES % (MANUAL) 2 % (5-12); PHOSPHORUS 3.3 mg/dL (2.5-4.9)
--- NOTE | 2017-12-18 07:29 | NUR ---
GAVE REPORT TO DAYSHIFT NURSE FOR CONTINUITY OF CARE.
--- NOTE | 2017-12-18 07:30 | NUR ---
RECEIVED REPORT FROM PARKING OFFICER RN. PATIENT IS AAOX4, NO SIGNS AND SYMPTOMS OF ACUTE DISTRESS NOTED AT THIS TIME. PATIENT HAS RIGHT EJ 18G, SALINE LOCK AT THIS TIME. SITE IS CLEAN, DRY, PATENT AND INTACT. HAS IV TO THE LEFT AC 20G SALINE LOCK. SITE IS CLEAN, DRY, PATENT AND INTACT. HAS BUITRAGO CATHETER DRAINING TO GRAVITY. DISCUSSED PLAN OF CARE WITH PATIENT AND SHE VERBALIZED UNDERSTANDING. BED IN LOWEST POSITION, SIDE RAILS UP X2, CALL LIGHT WITHIN REACH. WILL CONTINUE TO MONITOR.
[2017-12-18 08:00] VITALS: BP 126/78
[2017-12-18 08:16] LABS: FOLIC ACID 17.3 ng/mL (>3.0)
[2017-12-18] MEDS: DOCUSATE SODIUM 100 MG GELCAP PO SCH (08:54)
[2017-12-18] MEDS: FERROUS SULFATE 325 MG TABEC PO SCH (08:55)
[2017-12-18] MEDS: FUROSEMIDE 20 MG/2 ML VIAL IVP SCH (08:56)
[2017-12-18] MEDS ORDERED: ASCORBIC ACID 500 MG TAB PO SCH (09:00)
--- NOTE | 2017-12-18 09:52 | NUR ---
WENT INTO THE ROOM WITH DR MOHAN BECAUSE PATIENT WAS STATING THAT SHE WANTS TO LEAVE AMA DUE TO HER MOTHER ON HOSPICE. DR MOHAN EXPLAINED TO HER THE RISKS INVOLVED IN LEAVING AMA AND THAT PATIENT POSSIBLY HAS CANCER AND NEEDS NEPHROSTOMY TUBES PUT IN. DR MOHAN TOLD HER THAT SHE NEEDS TO GO TO A HOSPITAL FOR HIGHER LEVEL OF CARE SUCH [place], [facility], [facility], [facility] ETC. IMMEDIATELY. PATIENT VERBALIZED UNDERSTANDING, AND STATED THAT HER MOTHER IS HER PRIORITY THEN WILL GO TO A HOSPITAL.
--- NOTE | 2017-12-18 10:30 | NUR ---
REMOVED IV SITES FROM EJ, AND LEFT FOREARM. SITES ARE CLEAN AND DRY, CATHETER INTACT. REMOVED BUITRAGO CATHETER. PATIENT TOOK OFF CHUCK WAGON DRIVER AND DOESN'T WANT IT BACK ON. WAITING FOR HER RIDE TO COME. WILL CONTINUE MONITOR.
--- NOTE | 2017-12-18 13:15 | NUR ---
PATIENT IN STABLE CONDITION AT THIS TIME. LEAVING AMA. ALL BELONGINGS ARE WITH PATIENT. IV SITES ALREADY REMOVED. WELL BUITRAGO CATHETER.
== END 2017-12-18 13:15 | disposition left against medical advice (07) | DRG 720 ==
LOC: MED 16:01 → MTU 17:57
PROVIDERS: ADMIT General Practice; ATTEND General Practice
PROC: 30233N1 Transfusion of Nonautologous Red Blood Cells into Peripheral Vein, Percutaneous Approach (ICD-10-PCS; principal; 2017-12-16)
PROC: 30233N1 Transfusion of Nonautologous Red Blood Cells into Peripheral Vein, Percutaneous Approach (ICD-10-PCS; 2017-12-17)
DX: A41.9 Sepsis, unspecified organism (principal); N17.0 Acute kidney failure with tubular necrosis; E43 Unspecified severe protein-calorie malnutrition; I50.9 Heart failure, unspecified; E87.1 Hypo-osmolality and hyponatremia; C53.9 Malignant neoplasm of cervix uteri, unspecified; D47.3 Essential (hemorrhagic) thrombocythemia; N32.89 Other specified disorders of bladder; C54.1 Malignant neoplasm of endometrium; N13.30 Unspecified hydronephrosis; E83.51 Hypocalcemia; R19.5 Other fecal abnormalities; E11.9 Type 2 diabetes mellitus without complications; N92.0 Excessive and frequent menstruation with regular cycle; N71.9 Inflammatory disease of uterus, unspecified; Z53.21 Procedure and treatment not carried out due to patient leaving prior to being seen by health care provider; R31.9 Hematuria, unspecified; E87.6 Hypokalemia; N39.0 Urinary tract infection, site not specified; D50.9 Iron deficiency anemia, unspecified; E87.70 Fluid overload, unspecified; Z83.3 Family history of diabetes mellitus; Z82.49 Family history of ischemic heart disease and other diseases of the circulatory system; Z79.899 Other long term (current) drug therapy; Z68.22 Body mass index [BMI] 22.0-22.9, adult
CPT/HCPCS: 36415; 71045; 76817; 80048; 80053; 80305; 81001; 82150; 82607; 82728; 82746; 83036; 83540; 83605; 83690; 83735; 83880; 84100; 84439; 84443; 84484; 85025; 85045; 85610; 85730; 86886; 86900; 86901; 86920; 87040; 87081; 87086; 93005; J0696; J1940; J1956; J2916; J3490; J7030; J7060; P9016; Q0092; Q0163